=== PATIENT | male | born 1970 | race Asian ===

== ENCOUNTER 2022-08-10 07:49 | Day surgery (SDC) | payer OTHER ==
[~2022-08-10] VITALS: Ht 167.6 cm; Wt 86.2 kg
[2022-08-10] MEDS ORDERED: LIDOCAINE 2% 100 MG/5 ML UJET TP ONE (08:51)
[2022-08-10] MEDS ORDERED: fentaNYL citrate 0.05 MG/ML VIAL ONE (08:51)
[2022-08-10] MEDS ORDERED: fentaNYL citrate 0.05 MG/ML VIAL IVP ONE (09:55)
== END 2022-08-10 10:08 | disposition home or self-care (01) ==
LOC: MMU 07:49 → MDS 07:49
PROVIDERS: ATTEND Internal Medicine Gastroenterology
DX: Z12.11 Encounter for screening for malignant neoplasm of colon (principal); K63.5 Polyp of colon; I10 Essential (primary) hypertension; E78.00 Pure hypercholesterolemia, unspecified; F17.210 Nicotine dependence, cigarettes, uncomplicated; Z79.899 Other long term (current) drug therapy; Z20.822 Contact with and (suspected) exposure to COVID-19
CPT/HCPCS: 45385; 87426; J3010